=== PATIENT | male | born 1945 | race Caucasian/White ===

== ENCOUNTER → 2016-12-24 | Outpatient (CLI) | payer MEDICARE ==
[~2016-12-24] MED LIST: AMIO200T2 PO; AMLO10TA2 PO; ASPI81TA50 PO; ATOR10TA60 PO; FURO20TA3 PO; METF500T4 PO; METO25TA9 PO; RIVA10TA PO; VALS320T2 PO
--- NOTE | 2016-12-24 16:59 | CARD ---
APPROVED REPORT EXAM: Two-dimensional and M-mode echocardiogram with Doppler and color Doppler. Other Information Quality : GoodHR: 75bpm Rhythm : Atrial Fibrillation INDICATION New onset Atrial fibrillation RISK FACTORS Obesity 2D DIMENSIONS RVDd3.4 (2.9-3.5cm)Left Atrium(2D)4.4 (1.6-4.0cm) IVSd1.1 (0.7-1.1cm)Aortic Root(2D)3.4 (2.0-3.7cm) LVDd5.6 (3.9-5.9cm)LVOT Diameter2.3 (1.8-2.4cm) PWd1.2 (0.7-1.1cm)LVDs3.9 (2.5-4.0cm) FS (%) 30.5 %SV88.9 ml LVEF(%)57.3 (>50%) Aortic Valve AoV Peak Unruly.226.0cm/sAoV VTI48.1cm AO Peak GR.20.4mmHgLVOT Peak Unruly.105.6cm/s LVOT VTI 24.45cmAO Mean GR.12mmHg TOSHIA (VMAX)1.45tv1FFX (VTI)2.14cm2 AI P 1/2 Ipyq421gw Mitral Valve MV E Peak Gr.6mmHgMV E Mean Gr.2mmHg Pulmonary Valve PV Peak Mhsaegwy690.4cm/sPV Peak Grad.4mmHg Tricuspid Valve TR P. Zgwxqphp875dw/sTR Peak Gr.24mmHg Pulmonary Vein S1 Wsdipsfs94.3cm/s LEFT VENTRICLE The left ventricle is normal size. There is mild concentric left ventricular hypertrophy. The left ve ntricular systolic function is grossly normal. Visually the EF is 50-55%. Difficult to accurately est imate due to afib. Septal motion consistent with conduction abnormality. Tissue Doppler imaging revea ls moderate left ventricular diastolic dysfunction. RIGHT VENTRICLE The right ventricle is normal size. There is normal right ventricular wall thickness. The right ventr icular systolic function is normal. ATRIA The left atrium is mildly dilated. The right atrium size is normal. The interatrial septum is intact with no evidence for an atrial septal defect or patent foramen ovale as noted on 2-D or Doppler imagi ng. AORTIC VALVE The aortic valve is mildly sclerotic. The aortic valve is trileaflet. Doppler and Color Flow revealed mild aortic regurgitation. There is no significant aortic valvular stenosis. MITRAL VALVE The mitral valve leaflets are mildly thickened. There is no evidence of mitral valve prolapse. There is no mitral valve stenosis. Doppler and Color Flow revealed mild mitral regurgitation. TRICUSPID VALVE Doppler and Color Flow revealed mild tricuspid regurgitation. The pulmonary artery systolic pressure is estimated at 27 mmHg. There is no pulmonary hypertension. PULMONIC VALVE Doppler and Color Flow revealed trace pulmonic valvular regurgitation. There is no pulmonic valvular stenosis. GREAT VESSELS The aortic root is normal in size. The ascending aorta is mildly dilated. The IVC is normal in size a nd collapses >50% with inspiration. PERICARDIAL EFFUSION There is no evidence of significant pericardial effusion. Critical Notification Critical Value: No <Conclusion> The left ventricular systolic function is grossly normal. Visually the EF is 50-55%. Difficult to acc urately estimate due to afib. Tissue Doppler imaging reveals moderate left ventricular diastolic dysfunction. Doppler and Color Flow revealed mild aortic regurgitation. Doppler and Color Flow revealed mild mitral regurgitation.
== END | disposition home or self-care (01) ==
LOC: ECHO 07:50
PROVIDERS: ATTEND Internal Medicine Cardiovascular Disease
DX: I08.3 Combined rheumatic disorders of mitral, aortic and tricuspid valves (principal); I48.91 Unspecified atrial fibrillation
CPT/HCPCS: 93306

== ENCOUNTER → 2017-02-07 | Outpatient (CLI) | payer MEDICARE ==
[2017-02-07 08:30] LABS: ALBUMIN 3.2 g/dL (3.4-5.0); ALBUMIN/GLOBULIN RATIO 0.8 (1.0-1.7); CALCIUM 8.4 mg/dL (8.5-10.1); CREATININE 1.1 mg/dL (0.7-1.3); GFR 66.4; POTASSIUM 3.5 mmol/L (3.5-5.1); TOTAL BILIRUBIN 0.5 mg/dL (0.2-1.0); TOTAL PROTEIN 7.3 g/dL (6.4-8.2)
== END | disposition home or self-care (01) ==
LOC: LAB 07:58
PROVIDERS: ATTEND Nurse Practitioner
DX: I87.2 Venous insufficiency (chronic) (peripheral) (principal)
CPT/HCPCS: 36415; 80053; 83735

== ENCOUNTER → 2017-03-04 | Outpatient (CLI) | payer MEDICARE ==
--- NOTE | 2017-03-05 10:58 | RAD ---
APPROVED REPORT Bilateral Lower Extremity Venous Study for DVT Patient Location: OUT-PATIENT Indications Lower Extremity Edema: Varicose Veins Copeland scale images of the right and left common femoral, superficial femoral, profunda femoral, popli teal veins do not reveal any evidence of thrombus and these veins appear to be compressible. The belo w-knee veins are not well visualized on copeland scale images. The color Doppler and spectral waveforms of the common femoral to the popliteal segments reveal treasure l flow and spectral pattern. The below-knee veins revealed spontaneous flow. Critical Notification Critical Value: No <Conclusion> 1. Negative for DVT in the bilateral lower extremities.
--- NOTE | 2017-03-05 11:02 | RAD ---
APPROVED REPORT Patient Location : OUT-PATIENT Indications Lower Extremity Edema : Varicose Veins Copeland scale images of the right great saphenous vein on limited images do not reveal any evidence of t hrombus. The vein measures approximately 8 mm at the saphenofemoral junction. The vein has a reflux t eliot of approximately 4 seconds throughout its course. The right lesser saphenous vein measures 5.5 mm and has a reflux time of 4.9 seconds. The left great saphenous vein measures approximately 8 mm at the saphenofemoral junction. The vein galan s reflux time of approximately 4 seconds. The left great saphenous vein measures 4 mm and has a reflu x time of 3.9 seconds. Please note that the above reflux times were obtained with distal compression and augmentation as the patient was unable to perform a Valsalva maneuver. 1 calf perforators noted on the right side at approximately 18 cm up and 11 cm back measuring 3.9 mm. Critical Notification Critical Value: No <Conclusion> 1. Positive for reflux in the bilateral greater and lesser saphenous veins.
== END | disposition home or self-care (01) ==
LOC: US 07:32
PROVIDERS: ATTEND Internal Medicine Cardiovascular Disease
DX: I87.2 Venous insufficiency (chronic) (peripheral) (principal); M79.89 Other specified soft tissue disorders; K21.9 Gastro-esophageal reflux disease without esophagitis; R60.0 Localized edema
CPT/HCPCS: 93970

== ENCOUNTER → 2017-07-29 | Outpatient (CLI) | payer MEDICARE ==
[~2017-07-29] MED LIST changes: +METO-239 PO; -METO25TA9 PO
[2017-07-29 11:48] LABS: ALBUMIN 3.3 g/dL (3.4-5.0); ALBUMIN/GLOBULIN RATIO 0.8 (1.0-1.7); CALCIUM 9.1 mg/dL (8.5-10.1); CREATININE 1.2 mg/dL (0.7-1.3); GFR 59.9; POTASSIUM 3.7 mmol/L (3.5-5.1); TOTAL BILIRUBIN 0.6 mg/dL (0.2-1.0); TOTAL PROTEIN 7.3 g/dL (6.4-8.2)
== END | disposition home or self-care (01) ==
LOC: LAB 10:40
PROVIDERS: ATTEND Internal Medicine Cardiovascular Disease
DX: I48.1 Persistent atrial fibrillation (principal); K21.9 Gastro-esophageal reflux disease without esophagitis; R79.89 Other specified abnormal findings of blood chemistry
CPT/HCPCS: 36415; 80053; 80061

== ENCOUNTER 2018-07-06 17:59 | Emergency (ER) | payer MEDICARE ==
[~2018-07-06 17:59] MED LIST changes: -AMIO200T2 PO; +AMIO200T4 PO; -AMLO10TA2 PO; +AMLO10TA6 PO; +METF500T16 PO; -METF500T4 PO
--- NOTE | 2018-07-06 18:46 | PHYS DOC ---
Adult General Chief Complaint Chief Complaint edema HPI HPI Deisy springer 73 years old gentleman with multiple medical problems including hypertension, A. fib, morbid obesity presented emergency department with the edema and lower extremities bilaterally denies any pain, no redness no recent travel he is taking is all on daily basis Review of Systems Review of Systems Constitutional: Denies fever or chills [] Eyes: Denies change in visual acuity, redness, or eye pain [] HENT: Denies nasal congestion or sore throat [] Respiratory: Denies cough or shortness of breath [] Cardiovascular: No additional information not addressed in HPI [] GI: Denies abdominal pain, nausea, vomiting, bloody stools or diarrhea [] : Denies dysuria or hematuria [] Musculoskeletal: Denies back pain or joint pain [] Integument: Denies rash or skin lesions [] Neurologic: Denies headache, focal weakness or sensory changes [] Endocrine: Denies polyuria or polydipsia [] All other systems were reviewed and found to be within normal limits, except as documented in this note. Allergies Allergies Allergies Coded Allergies Type Severity Reaction Last Updated Verified No Known Drug Allergies 12/24/16 No Physical Exam Physical Exam Constitutional: Well developed, well nourished, no acute distress, non-toxic appearance. [] HENT: Normocephalic, atraumatic, bilateral external ears normal, oropharynx moist, no oral exudates, nose normal. [] Eyes: PERRLA, EOMI, conjunctiva normal, no discharge. [] Neck: Normal range of motion, no tenderness, supple, no stridor. [] Cardiovascular:Heart rate regular rhythm, no murmur [] Lungs & Thorax: Bilateral breath sounds clear to auscultation [] Abdomen: Bowel sounds normal, soft, no tenderness, no masses, no pulsatile masses. [] Skin: Warm, dry, no erythema, no rash. [] Back: No tenderness, no CVA tenderness. [] Extremities: No tenderness, no cyanosis, no clubbing, ROM intact, + 2 edema bilaterally. [] Neurologic: Alert and oriented X 3, normal motor function, normal sensory function, no focal deficits noted. [] Psychologic: Affect normal, judgement normal, mood normal. [] Current Patient Data Vital Signs Vital Signs Date Time Temp Pulse Resp B/P (MAP) Pulse Ox O2 Delivery O2 Flow Rate FiO2 07/06/18 18:10 97.5 83 20 96 Room Air EKG EKG [] Radiology/Procedures Radiology/Procedures [] Course & Med Decision Making Course & Med Decision Making Pertinent Labs and Imaging studies reviewed. (See chart for details) [] Final Impression Final Impression I did very lengthy discussion with the patient in the presence of his he stated he does not want ultrasound because he wants to go home and he does not want to wait for the results of his been waiting for long time already. We talked about the side effect of amlodipine as a possibility of edema Patient agreed to draw some blood but did not want to wait for the result stated he'll follow-up with his primary care provider or veterinary epidemiologist I advised the patient to continue xarelto, also continue Lasix follow-up with cardiology[] Problems: (1) Peripheral edema Dragon Disclaimer Dragon Disclaimer This electronic medical record was generated, in whole or in part, using a voice recognition dictation system. UMM IBARRA MD Jul 06, 2018 18:46
[2018-07-06 19:00] VITALS: BP 132/62
[2018-07-06 19:17] LABS: BASO % 0 % (0-3); EOS # 0.1 x10^3/uL (0.0-0.7); EOS % 1 % (0-3); HEMATOCRIT 38.1 % (39.0-53.0); HEMOGLOBIN 12.2 g/dL (13.0-17.5); LYMPH # 2.1 x10^3/uL (1.0-4.8); LYMPH % 26 % (24-48); MEAN CORPUSCULAR HEMOGLOBIN 26 pg (25-35); MEAN CORPUSCULAR HGB CONC 32 g/dL (31-37); MEAN CORPUSCULAR VOLUME 82 fL (79-100); MONO # 0.6 x10^3/uL (0.0-1.1); MONO % 7 % (0-9); NEUT # 5.4 x10^3uL (1.8-7.7); NEUT % 66 % (31-73); PLATELET COUNT 229 x10^3/uL (140-400); RED BLOOD COUNT 4.67 x10^6/uL (4.30-5.70); RED CELL DISTRIBUTION WIDTH 14.9 % (11.5-14.5); WHITE BLOOD COUNT 8.3 x10^3/uL (4.0-11.0)
[2018-07-06 19:20] LABS: CALCIUM 8.8 mg/dL (8.5-10.1); CREATININE 1.2 mg/dL (0.7-1.3); GFR 59.7; POTASSIUM 3.5 mmol/L (3.5-5.1)
== END 2018-07-06 19:02 | disposition home or self-care (01) ==
LOC: ER 17:59
DX: R60.0 Localized edema (principal); I10 Essential (primary) hypertension; I48.91 Unspecified atrial fibrillation; E66.01 Morbid (severe) obesity due to excess calories
CPT/HCPCS: 36415; 80048; 85025; 85610; 99284

== ENCOUNTER → 2018-08-11 | Outpatient (CLI) | payer MEDICARE ==
--- NOTE | 2018-08-11 15:40 | CARD ---
MR#: [id number] Date of Study: 08/11/2018 Ordering Physician: ESTELA GIBBS, Referring Physician: ESTELA GIBBS, Tech: Ruth Ann Duran RDCS APPROVED REPORT EXAM: Two-dimensional and M-mode echocardiogram with Doppler and color Doppler. INDICATION Atrial Fibrillation RISK FACTORS Obesity 2D DIMENSIONS RVDd3.3 (2.9-3.5cm)Left Atrium(2D)4.9 (1.6-4.0cm) IVSd1.4 (0.7-1.1cm)Aortic Root(2D)3.3 (2.0-3.7cm) LVDd5.2 (3.9-5.9cm)LVOT Diameter2.2 (1.8-2.4cm) PWd1.1 (0.7-1.1cm)LVDs3.8 (2.5-4.0cm) FS (%) 26.8 %SV66.5 ml LVEF(%)51.9 (>50%) Aortic Valve AoV Peak Unruly.206.3cm/sAoV VTI37.5cm AO Peak GR.17.0mmHgLVOT Peak Unruly.109.4cm/s LVOT VTI 21.98cmAO Mean GR.11mmHg TOSHIA (VMAX)2.32cr5QRG (VTI)2.29cm2 AI P 1/2 Rpke284lj Tricuspid Valve TR P. Gjpmomwo416eh/sRAP ADLMXAWY9hlLb TR Peak Gr.52kdIeLPKQ08rpMx Pulmonary Vein S1 Dxxirhso65.5cm/sD2 Hbvswvkw27.0cm/s LEFT VENTRICLE The left ventricle is normal size. There is normal left ventricular wall thickness. Left ventricle sy stolic function is low normal. The Ejection Fraction is 50-55%. There is normal LV segmental wall mot ion. RIGHT VENTRICLE The right ventricle is normal size. The right ventricular systolic function is normal. ATRIA The left atrium is mildly dilated. The right atrium is mildly dilated. The interatrial septum is inta ct with no evidence for an atrial septal defect or patent foramen ovale as noted on 2-D or Doppler im aging. AORTIC VALVE The aortic valve is moderately thickened but opens well. Doppler and Color Flow revealed mild aortic regurgitation. There is no significant aortic valvular stenosis. MITRAL VALVE The mitral valve is calcified but opens well. There is no evidence of mitral valve prolapse. There is no mitral valve stenosis. Doppler and Color-flow revealed trace mitral regurgitation. TRICUSPID VALVE The tricuspid valve is normal in structure and function. Doppler and Color Flow revealed mild tricusp id regurgitation. There is moderate pulmonary hypertension. The PA pressure was estimated at 47 mmHg. There is no tricuspid valve stenosis. PULMONIC VALVE The pulmonic valve is not well visualized. Doppler and Color Flow revealed trace pulmonic valvular re gurgitation. There is no pulmonic valvular stenosis. GREAT VESSELS The aortic root is normal in size. The ascending aorta is mildly dilated at 3.6 cm. The IVC was not v isualized. PERICARDIAL EFFUSION There is no evidence of significant pericardial effusion. Critical Notification Critical Value: No <Conclusion> The left ventricle is normal size. Left ventricle systolic function is low normal. The Ejection Fraction is 50-55%. There is no significant aortic valvular stenosis. Doppler and Color Flow revealed mild aortic regurgitation. Doppler and Color-flow revealed trace mitral regurgitation. Doppler and Color Flow revealed mild tricuspid regurgitation. There is moderate pulmonary hypertension. The PA pressure was estimated at 47 mmHg. The ascending aorta is mildly dilated at 3.6 cm. Signed by : hSorty Lazaro MD Electronically Approved : 08/11/2018 15:38:56
== END | disposition home or self-care (01) ==
LOC: ECHO 13:26
PROVIDERS: ATTEND Internal Medicine Cardiovascular Disease
DX: I08.2 Rheumatic disorders of both aortic and tricuspid valves (principal); I48.2 Chronic atrial fibrillation; I27.20 Pulmonary hypertension, unspecified; E66.9 Obesity, unspecified
CPT/HCPCS: 93306

== ENCOUNTER → 2018-08-11 | Outpatient (CLI) | payer MEDICARE ==
[2018-08-11 15:05] LABS: ALBUMIN 3.1 g/dL (3.4-5.0); ALBUMIN/GLOBULIN RATIO 0.7 (1.0-1.7); CALCIUM 8.3 mg/dL (8.5-10.1); CREATININE 1.3 mg/dL (0.7-1.3); GFR 54.4; POTASSIUM 3.5 mmol/L (3.5-5.1); TOTAL BILIRUBIN 0.3 mg/dL (0.2-1.0); TOTAL PROTEIN 7.4 g/dL (6.4-8.2)
== END | disposition home or self-care (01) ==
LOC: LAB 13:36
PROVIDERS: ATTEND Internal Medicine Cardiovascular Disease
DX: I48.2 Chronic atrial fibrillation (principal)
CPT/HCPCS: 36415; 80053; 83880

== ENCOUNTER 2020-02-09 16:42 | Inpatient (IN) | payer MEDICARE ==
[~2020-02-09] VITALS: Ht 172.7 cm; Wt 129.8 kg
[~2020-02-09 16:42] MED LIST changes: -AMLO10TA6 PO; +AMLO10TA8 PO
--- NOTE | 2020-02-09 17:03 | PHYS DOC ---
Past History Past Medical History: A-Fib, Diabetes, High Cholesterol, Hypertension, Hypothyroid Past Surgical History: Other Alcohol Use: Sober Drug Use: None General Adult EDM: Chief Complaint: LOWER EXTREMITY EDEMA HPI: HPI: 74-year-old male significant history of hypertension, hyperlipidemia, diabetes mellitus, atrial fibrillation on Xarelto, who presents for the evaluation of a nearly 1 month history of increasing symmetric lower extremity edema. 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 Crowell this prior to arrival, who sent him to the ER for further evaluation. The patient reports chronic dyspnea, unchanged from baseline. No chest pain, fever, chills, or URI symptoms. Reports compliance with medication regimen, with the exception of his diuretic, as it results in urinary frequency. Review of Systems: Review of Systems: Gen: No fever, chills. Eyes: No blurred vision, diplopia. ENT: No nasal congestion, sore throat. CV: No CP, palpitations. Reports lower extremity edema. Resp. No cough. Reports chronic dyspnea. GI: No abd pain, N/V. : No dysuria, hematuria. Neuro: No RODRIGES, dizziness, weakness. MSK: No myalgia, arthralgia Skin: No acute rash or lesion. Heart Score: Risk Factors: Risk Factors: DM, Current or recent (<one month) smoker, HTN, HLP, family histo ry of CAD, obesity. Risk Scores: Score 0 - 3: 2.5% MACE over next 6 weeks - Discharge Home Score 4 - 6: 20.3% MACE over next 6 weeks - Admit for Clinical Observation Score 7 - 10: 72.7% MACE over next 6 weeks - Early Invasive Strategies Allergies: Allergies: Allergies Coded Allergies Type Severity Reaction Last Updated Verified No Known Drug Allergies 12/24/16 No Physical Exam: PE: Gen: NAD. Well nourished. Head: NC/AT. Eyes: No scleral icterus. No conjunctival injection. ENT: MMM. Posterior OP clear. Neck: Supple. NT. CV: Irregularly irregular. Systolic ejection murmur. Peripheral pulses intact. Resp: CTAB. Abd: Soft. NT. ND. MSK: No peripheral cyanosis. Significant bilateral lower extremity edema with mild erythema right greater than left leg without focal fluctuance or induration. Distal digits are warm and perfused. Neuro: Awake and alert. Skin. Warm. Dry. Psych: Appropriate mood & affect. EKG: EKG: EKG at 1722. Irregularly irregular rhythm. Heart rate 82. Left bundle branch block morphology. No STEMI. Interpreted by me. Radiology/Procedures: Radiology/Procedures: CHEST AP ONLY Clinical History: Reason: SOA / Spl. Instructions: / History: Technique: AP view of the chest was obtained at 02/09/2020 4:58 PM. Comparison: None. Findings: The cardiomediastinal silhouette is normal. The pulmonary vasculature is normal. The lungs and pleural margins are clear. Impression: No evidence of an acute cardiopulmonary process. Electronically signed by: Darrell Apodaca III, MD (02/09/2020 5:10 PM) [facility] Course & Med Decision Making: Course & Med Decision Making Pertinent Labs and Imaging studies reviewed. (See chart for details) In summary, 74-year-old male who presents for evaluation of a one-month history of increasing bilateral lower extremity edema, with some cellulitic changes of the left anterior leg. Right anterior leg erythema is likely more inside sales account representative of stasis dermatitis. Chronically anticoagulated with Xarelto, making DVT less likely. Reported noncompliance with diuretic due to urinary frequency and polyuria. Chest x-ray clear. No increased work of breathing. Lab work is otherwise unrevealing including negative troponin. Likely a consequence of peripheral edema from diuretic noncompliance, with concomitant mild cellulitis. Will be given Lasix 40 mg IV, oral Keflex and topical mupirocin. Advised adherence to medication regimen including his diuretic. Outpatient cardiology follow-up with Dr. Richards Return precautions given. Aure Disclaimer: Aure Disclaimer: This electronic medical record was generated, in whole or in part, using a voice recognition dictation system. Departure Departure: Impression: Primary Impression: Peripheral edema Additional Impressions: Stasis dermatitis Cellulitis of left leg Nonadherence to medication Disposition: 01 HOME/RESIDENCE PRIOR TO ADM Condition: STABLE Referrals: ADRIANNA MONDRAGON (PCP) Patient Instructions: Cellulitis, Nqvd-fs-Egnd, Peripheral Edema Additional Instructions: Please take all your medications, including your diuretic ("water pill"). Return to the ED if you develop new or worsening symptoms. Justification of Admission: Justification of Admission: Justification of Admission Dx: N/A MIKE IZAGUIRRE DO Feb 09, 2020 17:03
--- NOTE | 2020-02-09 17:13 | RAD ---
CHEST AP ONLY Clinical History: Reason: SOA / Spl. Instructions: / History: Technique: AP view of the chest was obtained at 02/09/2020 4:58 PM. Comparison: None. Findings: The cardiomediastinal silhouette is normal. The pulmonary vasculature is normal. The lungs and pleural margins are clear. Impression: No evidence of an acute cardiopulmonary process. Electronically signed by: Darrell Apodaca III, MD (02/09/2020 5:10 PM) [facility]
--- NOTE | 2020-02-09 17:31 | EKG ---
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
[2020-02-09 17:37] LABS: BASO % 1 % (0-3); EOS # 0.3 x10^3/uL (0.0-0.7); EOS % 3 % (0-3); HEMATOCRIT 33.5 % (39.0-53.0); HEMOGLOBIN 10.5 g/dL (13.0-17.5); LYMPH % 24 % (24-48); MEAN CORPUSCULAR HEMOGLOBIN 24 pg (25-35); MEAN CORPUSCULAR HGB CONC 31 g/dL (31-37); MEAN CORPUSCULAR VOLUME 77 fL (79-100); MONO # 0.5 x10^3/uL (0.0-1.1); MONO % 6 % (0-9); NEUT # 5.4 x10^3uL (1.8-7.7); NEUT % 66 % (31-73); PLATELET COUNT 241 x10^3/uL (140-400); RED BLOOD COUNT 4.38 x10^6/uL (4.30-5.70); RED CELL DISTRIBUTION WIDTH 19.2 % (11.5-14.5); WHITE BLOOD COUNT 8.2 x10^3/uL (4.0-11.0)
[2020-02-09 17:48] LABS: CALCIUM 8.7 mg/dL (8.5-10.1); CREATININE 1.3 mg/dL (0.7-1.3); GFR 54.3
[2020-02-09] MEDS ORDERED: MUPIROCIN 2% TOPICAL OINTMENT 22GM TUBE. TP SCH (18:00)
[2020-02-09] MEDS ORDERED: FUROSEMIDE 40 MG/4 ML VIAL IVP ONE (18:00)
[2020-02-09] MEDS ORDERED: CEPHALEXIN 250 MG CAPSULE PO ONE (18:00)
[2020-02-09 18:01] LABS: ALBUMIN/GLOBULIN RATIO 0.7 (1.0-1.7); MAGNESIUM 2.3 mg/dL (1.8-2.4); TOTAL BILIRUBIN 0.5 mg/dL (0.2-1.0); TOTAL PROTEIN 7.6 g/dL (6.4-8.2)
[2020-02-09] MEDS ORDERED: MUPI15CR8 TP (18:05)
[2020-02-09] MEDS ORDERED: CEPH-264 PO (18:05)
[2020-02-09] MEDS ORDERED: MUPIROCIN 2% TOPICAL OINTMENT 22GM TUBE. TP ONE (18:14)
[2020-02-09] MEDS ORDERED: ONDANSETRON PF 4 MG/2 ML VIAL. IVP PRN (18:30)
[2020-02-09] MEDS ORDERED: VANCOMYCIN 2 GM in IV NORMAL SALINE 500ML 500 ML IV ONE (19:00)
--- NOTE | 2020-02-09 19:35 | NUR ---
Pt arrived from ED in stable condition via transport stretcher. Pt ambulated to bed without difficulty. Pt placed on telemetry and oriented to room. Will admit pt and carry out MD orders. Pt allowed for questions.
[2020-02-09 19:50] VITALS: BP 123/89
[2020-02-09] MEDS ORDERED: IPRATRPIUM/ALBUTEROL 0.5/2.5MG 3 ML NEBU. NEB SCH (20:00)
[2020-02-09] MEDS: FUROSEMIDE 40 MG/4 ML VIAL IVP SCH (21:00)
[2020-02-09 21:10] VITALS: BP 148/93
[2020-02-09] MEDS ORDERED: IPRATRPIUM/ALBUTEROL 0.5/2.5MG 3 ML NEBU. NEB PRN (21:15)
[2020-02-09 22:10] VITALS: BP 147/78
[2020-02-09] MEDS: VANCOMYCIN PER PHARMACY MC PRN (22:37)
--- NOTE | 2020-02-09 22:37 | NUR ---
Pharmacy Vancomycin Dosing Note S:Consulted to monitor and dose vancomycin started 02/09/20. O:NELL PARDO is a 74 year old M with Cellulitis, . Height: 5 feet, 8 inches Weight: 137.0 kg [place] Body Weight: 68.40 Adjusted Body Weight: 95.84 Dosing Weight: Actual Other Antibiotics: CEFTRIAXONE 1GRAM Q 24HRS LABS: Last BUN: 20 Last Creatinine: 1.3 Creatinine Clearance: Last WBC: 8.2 Last Procalcitonin: Tmax (past 24 hours): Microbiology: I/O: Drug Levels: Last level: on at Last dose given 02/09/20 at 2030 Vancomycin Dosing: Loading Dose: 2000 mg x1 Dosing Weight: Actual Target Trough: 10-20 A: Based on: P: 1. Begin Vancomycin 2000 mg IV q12h 2. Follow up Trough level on 02/11/20 at 0830 3. Pharmacy will continue to monitor, follow and adjust therapy as needed. JR MAYORGA, [facility], 02/09/20 [id number]
[2020-02-09] MEDS ORDERED: PIOG15TA42 PO (22:52)
[2020-02-09] MEDS ORDERED: TORS100T3 PO (22:54)
[2020-02-09] MEDS ORDERED: LEVO50TA5 PO (22:56)
[2020-02-09 23:10] VITALS: BP 132/78
[2020-02-10] VITALS (11 sets, daily range): BP systolic 125–146; BP diastolic 65–88
--- NOTE | 2020-02-10 05:21 | NUR ---
Pt has not slept much at all tonight, he states, "It is hard to sleep in the hospital." He remains on RA. No c/o pain. Pt BLE remain edematous and with cellulitis. Pt tolerated his vancomycin abx. Dipika in place for accurate I&Os
[2020-02-10 06:12] LABS: BASO % 1 % (0-3); EOS # 0.2 x10^3/uL (0.0-0.7); EOS % 3 % (0-3); HEMATOCRIT 31.1 % (39.0-53.0); HEMOGLOBIN 9.7 g/dL (13.0-17.5); LYMPH # 1.4 x10^3/uL (1.0-4.8); LYMPH % 25 % (24-48); MEAN CORPUSCULAR HEMOGLOBIN 24 pg (25-35); MEAN CORPUSCULAR HGB CONC 31 g/dL (31-37); MEAN CORPUSCULAR VOLUME 76 fL (79-100); MONO # 0.5 x10^3/uL (0.0-1.1); MONO % 9 % (0-9); NEUT # 3.5 x10^3uL (1.8-7.7); NEUT % 63 % (31-73); PLATELET COUNT 215 x10^3/uL (140-400); RED BLOOD COUNT 4.09 x10^6/uL (4.30-5.70); RED CELL DISTRIBUTION WIDTH 19.2 % (11.5-14.5); WHITE BLOOD COUNT 5.6 x10^3/uL (4.0-11.0)
[2020-02-10 06:16] LABS: CALCIUM 8.2 mg/dL (8.5-10.1); GFR 73.5; POTASSIUM 3.3 mmol/L (3.5-5.1)
[2020-02-10] MEDS ORDERED: VANCOMYCIN 1 GM in IV NORMAL SALINE 250ML 250 ML IV ONE (09:00)
[2020-02-10] MEDS: FUROSEMIDE 40 MG/4 ML VIAL IVP SCH (09:04)
[2020-02-10] MEDS: LACTOBACILLUS RHAMNOSUS GG 1 CAPSULE. PO SCH ×2 (09:04→20:55)
--- NOTE | 2020-02-10 09:46 | PDOC ---
PROVIDER NOTE PROVIDER NOTE PROVIDER NOTE patient well known to our service. Sent to ER from my office. Will continue lasix, replete K. Good UOP and negative fluid balance last night Consult wound care for local wound mgmt. Needs home health care. Will set up everything and anticipate DC on friday or late tomorrow Needs to be admitted for severe acute on chronic systolic and diastolic heart failure with poor response to outpt diuretics. Thanks Justification of Admission: Justification of Admission: Justification of Admission Dx: N/A ESTELA GIBBS MD Feb 10, 2020 09:46
[2020-02-10] MEDS ORDERED: MAGNESIUM SULFATE 1GM 100 ML IV ONE (10:20)
--- NOTE | 2020-02-10 10:35 | HP ---
ADMIT DATE: 02/10/2020 ATTENDING PHYSICIAN: Dr. Doss. CHIEF COMPLAINT: Shortness of breath and swelling. HISTORY OF PRESENT ILLNESS: The patient is a 74-year-old retired gentleman with a longstanding history of morbid obesity, hypertension, diabetes mellitus, atrial fibrillation and chronic anticoagulation. He has had a nearly one-month history of increasing lower extremity edema. He has 4+ edema extending all the way up to his thighs. He has stasis dermatitis and cellulitis. He has very little insight into his fluid balance. He drinks a lot of fluids and ice tea. He had been on diuretics. He stopped taking it because it was causing him to urinate too much. Therefore, weight has gone up. Weight on admission was 305 pounds. He was seen by Dr. Crowell who referred him for admission. We are grateful for the kind referral. He will be here for diuresis, fluid restriction, daily weights and serial chemistries. Because of his cellulitis, empiric vancomycin has been started. PAST MEDICAL HISTORY: Significant for essential hypertension; noncompliance of meds; hyperlipidemia; type 2 diabetes; atrial fibrillation; chronic anticoagulation, on Xarelto and morbid obesity. MEDICATIONS: Medicines were reviewed. Whether he was compliant or not remains to be seen. He has no recorded drug allergies. He was taking atorvastatin daily, cephalexin orally, Synthroid, metformin, metoprolol, Actos, rivaroxaban, torsemide 50 mg b.i.d. and valsartan 320 mg daily. SOCIAL HISTORY: He is a nonsmoker, nondrinker. 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 He has no family, lives with the brother. He does eat quite a bit of sodium in his diet. FAMILY HISTORY: Mom at age 84 of heart disease. Father of alcoholic related issues at age 68. REVIEW OF SYSTEMS: Significant for the increased fluid intake. No fevers, chills, COVID exposure. He denied any palpitations. He is on chronic anticoagulation. He denies any bleeding, nausea, hematemesis or bloody stool. All other systems reviewed and turned to be negative. PHYSICAL EXAMINATION: GENERAL: When I saw him, this is a pleasant gentleman who was breathing better. INITIAL VITAL SIGNS: In the ED showed a blood pressure of 146/72, pulse is 60 and regular, temperature 97.7 degrees Fahrenheit, and his oxygen saturation were 97% on room air. HEENT: Head is without trauma. Pupils are reactive. Sclerae nonicteric. Oropharynx clear. NECK: Supple. Venous pressure is not distended at 45 degrees. LUNGS: Bibasilar crackles. CARDIOVASCULAR: Showed distant heart tones, irregular rhythm. No gallops. Peripheral pulses are palpable and full. ABDOMEN: Obese, protuberant. No organomegaly. Large pannus. There is some erythema below the pannus. EXTREMITIES: Show 4+ edema extending up to his thighs. There are numerous excoriations. No abscess, but open skin wounds from the swelling. NEUROLOGIC: Focally intact. He gets along slowly. His gait is hampered by his swelling. SKIN: As noted. PERTINENT LABORATORY AND X-RAY STUDIES: Chest x-ray showed cardiomegaly, vascular congestion and bilateral pleural effusions. Admission hemoglobin was 10.5 g/dL with white count of 8200. Chemistry panel showed sodium 137, potassium 4.0 mEq, creatinine is 1.3 mg/dL. Cardiac troponin was 0.02. ASSESSMENT: 1. A 74-year-old gentleman with significant anasarca. 2. Stasis dermatitis. 3. Noncompliance of fluids with volume overload. I anticipate he has 40 pounds of third-space fluid. 4. Noncompliance of meds. 5. Type 2 diabetes mellitus. 6. Chronic atrial fibrillation, on Xarelto therapy. 7. Essential hypertension. 8. Morbid obesity. PLAN: 1. Admit to the unit. 2. Empiric vancomycin has been started. 3. Diuresis with Lasix intravenously. 4. Potassium and magnesium replacement. 5. Serial chemistry. 6. A 1200 mL daily fluid restriction. 7. Continue other home meds. 8. Cardiology consultation. 9. I should try to access his last echocardiogram if one has been done recently. VIANEY DOSS MD DR: DORIS/mallika JOB#: [id number] / [id number] ESTELA Horne MD, JAROD PA
[2020-02-10] MEDS: VANCOMYCIN 2 GM in IV NORMAL SALINE 500ML 500 ML IV SCH ×2 (12:24→21:31)
[2020-02-10] MEDS: POTASSIUM CHLORIDE 20 MEQ TABLET.ER. PO SCH ×2 (12:25→20:55)
[2020-02-10] MEDS: FUROSEMIDE 100 MG/10 ML VIAL IVP SCH (14:00)
--- NOTE | 2020-02-11 02:16 | NUR ---
Nursing Note The patient was found to be laying in his bed awake and alert and oriented to self, date, location, and situation at shift change. The patient was pleasant and appropriate during interactions with this nurse during his assessment. The patient has wounds located bilaterally on his lower legs. These wounds have been documented previously and appear to have no deterioration since last they were assessed. The wounds have no output at this time. Area around BLE wounds is noted to be red and edematous. The patient stated no difficulty breathing, active bowel sounds w/lbm 02/10/20 per patient. The patient took his medications whole. The patient has a 20guage IV located in his Right AC. The IV appears to have some old blood located under the transparent dressing but the line flushes easily. The IV is sensitive to any movement of the patient. The patient is currently sleeping in his room.
[2020-02-11 03:17] VITALS: BP 145/88
[2020-02-11 06:21] LABS: CREATININE 1.2 mg/dL (0.7-1.3); GFR 59.5; MAGNESIUM 2.2 mg/dL (1.8-2.4); POTASSIUM 3.5 mmol/L (3.5-5.1)
[2020-02-11 07:14] VITALS: BP 145/88
--- NOTE | 2020-02-11 08:15 | NUR ---
Pt's heart rate increases to approximately 160 with minimal movement, pt's home medications had not been restarted. This RN called and spoke to Dr. Crowell (pt's bus operator), received orders to restart Xarelto and metoprolol succinate. Dr. Crowell said to hold off on valsartan at this time, due to increased Lasix dose and prevent decreased kidney function.
[2020-02-11] MEDS: FUROSEMIDE 100 MG/10 ML VIAL IVP SCH ×2 (08:50→14:12)
[2020-02-11] MEDS: LACTOBACILLUS RHAMNOSUS GG 1 CAPSULE. PO SCH ×2 (08:50→21:35)
[2020-02-11] MEDS: POTASSIUM CHLORIDE 20 MEQ TABLET.ER. PO SCH ×2 (08:51→21:35)
[2020-02-11 08:53] LABS: VANC TR 22.9 mcg/mL (10.0-20.0)
[2020-02-11] MEDS ORDERED: MAGNESIUM SULFATE 1GM 100 ML IV ONE (09:00)
[2020-02-11] MEDS ORDERED: METOPROLOL SUCC 24HR ER 25 MG TAB.ER.24H. PO SCH (09:00)
[2020-02-11] MEDS ORDERED: VANCOMYCIN 1.75 GM in IV NORMAL SALINE 500ML 500 ML IV SCH (09:30)
[2020-02-11] MEDS: VANCOMYCIN 1.5 GM in IV NORMAL SALINE 500ML 500 ML IV SCH ×2 (10:36→21:36)
[2020-02-11] MEDS ORDERED: METOPROLOL TART IMMED RELEASE 25 MG TABLET PO ONE (11:00)
[2020-02-11 11:22] VITALS: BP 145/88
--- NOTE | 2020-02-11 11:55 | PN ---
DATE: 02/11/2020 ATTENDING PHYSICIAN: Dr. Doss. SUBJECTIVE: He is doing better. He wants to go home. He was pretty adamant about it. I explained to him that since his condition did not occur overnight, I cannot get him treated overnight. His weight is down 10 pounds since yesterday, 21 pounds since admission. His swelling is better. He is feeling well. Once again, he has very little insight into his condition and what got him here in the first place. OBJECTIVE FINDINGS: VITAL SIGNS: Blood pressure today is 145/88, his heart rate is irregularly irregular. He has permanent atrial fibrillation. Heart rate ranges between 120 and 150. He is not symptomatic. His temperature is 98.6 degrees Fahrenheit. Room air saturations are 92%. HEENT: Head is without trauma. Pupils are reactive. I noticed now he has a noticeable telangiectasia around his nose. NECK: Supple. Venous pressure is not distended. LUNGS: Minimal crackles at the bases. CARDIOVASCULAR: Showed distant heart tones, tachycardic rhythm, irregularly irregular. No obvious gallops. Peripheral pulses are palpable and full. ABDOMEN: Markedly obese, protuberant. No organomegaly. Bowel sounds were hypoactive. EXTREMITIES: Showed some improvement of the 4+ pitting edema. He has excoriations on both legs from scratching. There are no open sores. The swelling is down and the redness and erythema has improved with inpatient care and IV antibiotics. PERTINENT LABORATORY STUDIES: His creatinine today is slightly up to 1.2 mg/dL, potassium is 3.5 mEq. This has been replaced. His nonfasting blood sugar is 132. His weight again is 284, down to 10 pounds from yesterday. ASSESSMENT: 1. A 74-year-old gentleman with acute on chronic congestive heart failure. 2. Anasarca. 3. Stasis dermatitis. 4. Noncompliance of meds. 5. Type 2 diabetes. 6. Permanent atrial fibrillation, currently on Xarelto. 7. Essential hypertension. 8. Morbid obesity. 9. History of alcoholism in the past. He states he quit 3 years ago. PLAN: 1. Increase metoprolol dose to control ventricular rate. He is still tachycardic. 2. Continue diuresis with b.i.d. Lasix therapy. 3. Potassium and magnesium replacement. 4. Serial chemistries. 5. Continue 1200 mL daily fluid restriction. Whether or not he will maintain this upon discharge remains to be seen. I seriously doubt that he understands the concept of fluid restriction. 6. Beta eduardo has been increased. 7. Recommendations per Cardiology. 8. I am still trying to track down his last echocardiogram. VIANEY DOSS MD DR: DORIS/mallika JOB#: [id number] / [id number] ESTELA Horne MD
--- NOTE | 2020-02-11 12:30 | NUR ---
pt sitting up eating lunch, Dr. Steiner had increased Metoprol to 100mg po daily. Pt's current heartrate is 86. Pt is less SOB when moving around. Pt had 2000 cc output after IV Lasix this morning.
[2020-02-11 14:00] VITALS: BP 112/60
[2020-02-11 15:51] VITALS: BP 112/60
[2020-02-11] MEDS: VANCOMYCIN PER PHARMACY MC PRN (16:02)
--- NOTE | 2020-02-11 16:03 | NUR ---
Pharmacy Vancomycin Dosing Note S:Consulted to monitor and dose vancomycin started 02/09/20. O:NELL PARDO is a 74 year old M with cellulitis. Height: 5 feet, 8 inches Weight: 130.1 kg [place] Body Weight: 68.40 Adjusted Body Weight: 93.08 Dosing Weight: Actual Other Antibiotics: CEFTRIAXONE 1GRAM Q 24HRS LABS: Last BUN: 13 Last Creatinine: 1.2 Creatinine Clearance: 73.3 Last WBC: 5.6 Drug Levels: Last Trough level: 22.9 on 02/11/20 at 0830 Last dose given 02/10/20 at 2030 Vancomycin Dosing: Loading Dose: 2000 mg x1 Dosing Weight: Actual Target Trough: 10-20 A: Based on: Pt's trough elevated, will decrease dose based on kinetics. P: 1. Decrease Vancomycin 1500 mg IV q12h 2. Follow up Trough level on 02/12/20 at 2100 3. Pharmacy will continue to monitor, follow and adjust therapy as needed. DEA RUDD, 02/11/20 [id number]
--- NOTE | 2020-02-11 16:57 | NUR ---
Wound Care Wound care consult for bilateral leg cellulitis with wounds. Lotion applied to BLE. Pt has multiple scabs on BLE with resolving swelling and redness. Educated pt on PU prevention. No other wounds noted, WC will sign off at this time. Please reconsult if new wounds develop.
[2020-02-11] MEDS ORDERED: RIVAROXABAN 10 MG TABLET. PO SCH (17:00)
[2020-02-11 20:32] VITALS: BP 118/58
[2020-02-12 06:34] VITALS: BP 150/92
[2020-02-12] MEDS: FUROSEMIDE 100 MG/10 ML VIAL IVP SCH (08:29)
[2020-02-12] MEDS: LACTOBACILLUS RHAMNOSUS GG 1 CAPSULE. PO SCH (08:29)
[2020-02-12] MEDS: POTASSIUM CHLORIDE 20 MEQ TABLET.ER. PO SCH (08:29)
[2020-02-12] MEDS ORDERED: METOPROLOL SUCC 24HR ER 50 MG TAB.ER.24H. PO SCH (09:00)
[2020-02-12] MEDS: VANCOMYCIN 1.5 GM in IV NORMAL SALINE 500ML 500 ML IV SCH (09:30)
--- NOTE | 2020-02-12 09:37 | NUR ---
Pt is calm, cooperative, and compliant but states he does not like his medication as he had hallucinations last night. He stated the clock had a face, the fan had the face of an elderly man and the TV was an empty box. Dr. Steiner informed. Pt is compliant with his medication and assessment. Pt is able to make wants and needs known.
--- NOTE | 2020-02-12 09:55 | NUR ---
Pt refused vancomycin stating "I'll just take the pills when I get home." "I don't want anything with a needle." Nurse educated pt on importance of antibiotic and how medication would be administered however pt was adamant and continued to refuse.
[2020-02-12 11:00] VITALS: BP 140/69
--- NOTE | 2020-02-12 11:15 | NUR ---
Discontinued pts sahni per daughters request. Pt tolerated well. Addendum: 02/12/20 at 1146 by CORNEL GREEN RN wrong pt
--- NOTE | 2020-02-12 12:57 | NUR ---
Pt left via accompanied by [facility] staff. Reviewed fluid restrictions, post sahni care, medications, and discharge instructions. Qi Brumfield acknowledged understanding. Pt entered vehicle unassisted.
--- NOTE | 2020-02-13 10:05 | DS ---
DATE OF DISCHARGE: 02/12/2020 ATTENDING PHYSICIAN: Dr. Doss FINAL DISCHARGE DIAGNOSES: 1. Anasarca. 2. Significant pedal edema due to noncompliance of meds and excess fluid intake. 3. Permanent atrial fibrillation. 4. Morbid obesity. 5. Probable congestive heart failure. Last echocardiogram 07/2018. 6. Stasis dermatitis. 7. Type 2 diabetes. 8. Essential hypertension. 9. History of chronic alcoholism in the past. HISTORY AND PHYSICAL: The patient is a 74-year-old gentleman who unfortunately has a poor social situation. He has no other family. He has a younger brother that he actually takes care of. There is a niece involved in his care. He has very little insight. He has multiple medical issues. He presented with significant swelling, some shortness of breath and excoriations on his lower extremities due to stasis dermatitis. He was admitted for further treatment and evaluation. Unfortunately, he has little insight into taking his meds. He has been noncompliant and even stated he stopped taking his diuretics. He had been on Demadex 50 mg b.i.d. PHYSICAL EXAMINATION: Please see the dictated note. PERTINENT LABORATORY AND X-RAY STUDIES: On admission, his weight was 305, on the day of discharge with aggressive diuresis, he was down to 273 by my estimate. Initial hemoglobin was 10.5 g/dL with a white count of 8200. Subsequent chemistry panel showed a creatinine that was 1.3, 1.0, and 1.2 mg/dL respectively. His potassium was 4.0, replaced and was 3.5 mEq per liter. This will be followed up as an outpatient. His troponin levels were nonischemic. Nonfasting blood sugar 132 mg/dL. BNP was 2797. COURSE IN THE HOSPITAL: The patient was admitted. He was started on b.i.d. Lasix intravenously along with daily weights, fluid restriction and serial chemistries. He did well. He lost about 10 pounds a day from third space fluid. We treated him with 3 full days of intravenous vancomycin to cover Staphylococcus species from his excoriations of the open wounds that are from him scratching at his leg. The swelling did come down. Erythema has improved and responded well to the antibiotics. By the third hospital day, his blood pressure and vital signs were stable. His heart rate had gone up, and we had increased his metoprolol to 100 mg daily. I reviewed the last echocardiogram dated 07/2018. At that time, he had a low ejection fraction estimated at 50%, enlargement of both left and right atrium, no significant valvular heart disease, but he had increased pulmonary hypertension. On the third hospital day, his weight was down 32 pounds since admission. Blood pressure was between 120 and 140 mmHg systolic. Heart rate had been controlled. It had gone as high as 148 per minute, but now it is in the 70s and 80s range with irregularly irregular rhythm. His oxygen saturations were 96% on room air and he was afebrile. Therefore, he insisted on going home. I recommended that he follow fluid restriction and get daily weights. I really doubt that he is going to do it. Nevertheless, I went over the details and whether or not he will follow the advice remains to be seen. In any event, I recommended an increased dose of metoprolol 100 mg ER daily, continuation of his Demadex 50 mg b.i.d. - I wrote him a new script, K-Dur 20 mEq b.i.d. and Vantin 200 mg p.o. b.i.d. for 7 more days and stop. I recommended he continue his Lipitor 10 mg daily, Synthroid 50 mcg daily, metformin 500 mg b.i.d., Actos 15 mg daily, Xarelto 20 mg daily, Demadex 50 mg b.i.d., and valsartan 80 mg p.o. daily. I strongly suggested that he follow up with his PCP and Dr. Crowell, his home demonstration agent for followup visit with recheck chemistries in about 2 weeks. The patient was then discharged from our hospital in stable condition with explicit instructions and followup care. VIANEY DOSS MD DR: DORIS/mallika JOB#: [id number] / [id number] ESTELA Horne MD
== END 2020-02-12 12:45 | disposition home or self-care (01) | DRG 292 ==
LOC: ER 16:42 → ICU 18:30
PROVIDERS: ADMIT Hospitalist; ATTEND Hospitalist
DX: I11.0 Hypertensive heart disease with heart failure (principal); L03.116 Cellulitis of left lower limb; I48.21 Permanent atrial fibrillation; Z68.41 Body mass index [BMI] 40.0-44.9, adult; I50.43 Acute on chronic combined systolic (congestive) and diastolic (congestive) heart failure; I87.2 Venous insufficiency (chronic) (peripheral); E03.9 Hypothyroidism, unspecified; E11.9 Type 2 diabetes mellitus without complications; E66.01 Morbid (severe) obesity due to excess calories; E78.00 Pure hypercholesterolemia, unspecified; E78.5 Hyperlipidemia, unspecified; I27.20 Pulmonary hypertension, unspecified; Z79.01 Long term (current) use of anticoagulants; Z79.84 Long term (current) use of oral hypoglycemic drugs; Z79.890 Hormone replacement therapy; Z79.899 Other long term (current) drug therapy; Z91.14 Patient's other noncompliance with medication regimen; Z91.19 Patient's noncompliance with other medical treatment and regimen; R60.1 Generalized edema
CPT/HCPCS: 36415; 71045; 80048; 80053; 80202; 83735; 83880; 84484; 85025; 93005; 96374; 99285; G0238; J0696; J1940; J3370; J3475; J7040

== ENCOUNTER → 2020-03-07 | Outpatient (CLI) | payer MEDICARE ==
[2020-02-12 11:00] VITALS: BP 140/69
[~2020-03-07] MED LIST changes: +CEPH-264 PO; +LEVO50TA5 PO; +MUPI15CR8 TP; +PIOG15TA42 PO; +TORS100T3 PO
[2020-03-07 10:08] LABS: CALCIUM 8.7 mg/dL (8.5-10.1); CREATININE 1.5 mg/dL (0.7-1.3); POTASSIUM 4.7 mmol/L (3.5-5.1)
== END | disposition home or self-care (01) ==
LOC: LAB 08:09
PROVIDERS: ATTEND Internal Medicine Cardiovascular Disease
DX: I48.91 Unspecified atrial fibrillation (principal)
CPT/HCPCS: 36415; 80048; 83880

== ENCOUNTER → 2020-03-07 | Outpatient (CLI) | payer MEDICARE ==
[2020-02-12 11:00] VITALS: BP 140/69
--- NOTE | 2020-03-14 10:18 | RAD ---
Ankle-brachial indices, bilateral lower extremity arterial duplex ultrasound INDICATION: Nonhealing wounds, bilateral lower extremities Comparison exam: None Discussion: Blood pressure measurements were obtained in the brachial arteries and lower extremities bilaterally. Right brachial pressure: 1 38 mmHg Left brachial pressure: 1 54 mmHg Right posterior tibial pressure: 1 54 mmHg Left posterior tibial pressure 1 52 mmHg Right dorsalis pedis pressure: 1 50 mmHg Left dorsalis pedis pressure: 1 46 mmHg Right JUD 1.0 Left JUD 0.9 Ultrasound evaluation of the major arteries of the bilateral lower extremities was performed including color Doppler imaging spectral analysis. Essentially normal waveform morphology and velocities are seen throughout the major arteries of the bilateral lower extremities including the common femoral, superficial femoral, popliteal, posterior tibial, anterior tibial, and dorsalis pedis arteries. Profunda arteries appear to be grossly patent. No focal elevation in velocity suggestive of hemodynamically significant stenosis is identified. No major arterial occlusion is seen. No evidence of aneurysm is seen. IMPRESSION: 1. Ankle brachial indices within normal limits 2. Grossly normal sonographic appearance of the major arteries of the bilateral lower extremities Electronically signed by: Junior Carrillo MD (03/14/2020 10:15 AM) [id number]
== END | disposition home or self-care (01) ==
LOC: US 08:03
PROVIDERS: ATTEND Preventive Medicine Undersea and Hyperbaric Medicine
DX: S81.802A Unspecified open wound, left lower leg, initial encounter (principal); S81.801A Unspecified open wound, right lower leg, initial encounter; I70.238 Atherosclerosis of native arteries of right leg with ulceration of other part of lower leg; R60.0 Localized edema; I87.2 Venous insufficiency (chronic) (peripheral); M79.89 Other specified soft tissue disorders; X58.XXXA Exposure to other specified factors, initial encounter; Y93.89 Activity, other specified; Y92.89 Other specified places as the place of occurrence of the external cause; Y99.8 Other external cause status
CPT/HCPCS: 93922; 93925

== ENCOUNTER → 2020-05-23 | Outpatient (CLI) | payer MEDICARE ==
[~2020-05-23] MED LIST changes: -AMIO200T4 PO; +AMIO200T6 PO; +AMLO-187 PO; -AMLO10TA8 PO
--- NOTE | 2020-05-23 15:34 | CARD ---
MR#: [id number] Date of Study: 05/23/2020 Ordering Physician: ESTELA GIBBS, Referring Physician: ESTELA GIBBS, Tech: Chelsea Mansfield APPROVED REPORT EXAM: Two-dimensional and M-mode echocardiogram with Doppler and color Doppler. Other Information HR: 72bpm Technically limited study due to body habitus and obesity INDICATION Atrial Fibrillation RISK FACTORS Hypertension Hyperlipidemia Diabetes Asthma 2D DIMENSIONS Left Atrium(2D)4.1 (1.6-4.0cm)IVSd1.2 (0.7-1.1cm) Aortic Root(2D)3.5 (2.0-3.7cm)LVDd4.9 (3.9-5.9cm) LVOT Diameter2.0 (1.8-2.4cm)PWd1.2 (0.7-1.1cm) LVDs3.1 (2.5-4.0cm)FS (%) 36.3 % SV73.7 ml Aortic Valve AoV Peak Unruly.224.4cm/sAoV VTI55.2cm AO Peak GR.20.1mmHgLVOT Peak Unruly.142.1cm/s LVOT VTI 36.37cmAO Mean GR.12mmHg TOSHIA (VMAX)2.47un9JLV (VTI)2.08cm2 AI P 1/2 Utgi314ji Mitral Valve MV E Uifsyxar928.6cm/sMV DECEL BETC133cv MV A Zkiqwtui08.2cm/sE/A Ratio3.7 Pulmonary Valve PV Peak Bksdsjdw33.8cm/sPV Peak Grad.3mmHg Tricuspid Valve TR P. Ipcxylca219pl/sRAP [id number] TR Peak Gr.12vaQyTIZM23owQl LEFT VENTRICLE The left ventricle is normal size. There is mild concentric left ventricular hypertrophy. The left ve ntricular systolic function is low normal. The Ejection Fraction is estimated at 50%. Septal motion c onsistent with conduction abnormality. RIGHT VENTRICLE The right ventricle is normal size. There is normal right ventricular wall thickness. The right ventr icular systolic function is normal. ATRIA The left atrium size is normal. The right atrium is mildly dilated. The interatrial septum is intact with no evidence for an atrial septal defect or patent foramen ovale as noted on 2-D or Doppler imagi ng. AORTIC VALVE The aortic valve is thickened but opens well. Doppler and Color Flow revealed trace aortic regurgitat ion. There is no significant aortic valvular stenosis. Calculated aortic valve area is 2.1 cm2 with m aximum pressure gradient of 20 mmHg and mean pressure gradient of 11 mmHg. MITRAL VALVE The mitral valve is normal in structure and function. There is no evidence of mitral valve prolapse. There is no mitral valve stenosis. Doppler and Color-flow revealed trace mitral regurgitation. TRICUSPID VALVE The tricuspid valve is normal in structure and function. Doppler and Color Flow revealed trace to mil d tricuspid regurgitation with an estimated PAP of >50 mmHg. There is no tricuspid valve stenosis. PULMONIC VALVE The pulmonic valve is not well visualized. GREAT VESSELS The aortic root is normal in size. The IVC is normal in size and collapses >50% with inspiration. PERICARDIAL EFFUSION There is no evidence of significant pericardial effusion. Critical Notification Critical Value: No <Conclusion> The left ventricle is normal size. The left ventricular systolic function is low normal. The Ejection Fraction is estimated at 50%. There is mild concentric left ventricular hypertrophy. Doppler and Color Flow revealed trace aortic regurgitation. There is no significant aortic valvular stenosis. Calculated aortic valve area is 2.1 cm2 with maximum pressure gradient of 20 mmHg and mean pressure g radient of 11 mmHg. Doppler and Color-flow revealed trace mitral regurgitation. Doppler and Color Flow revealed trace to mild tricuspid regurgitation with an estimated PAP of >50 mm Hg. Signed by : Shorty Lazaro MD Electronically Approved : 05/23/2020 15:34:18
== END ==
LOC: ECHO 12:54
PROVIDERS: ATTEND Internal Medicine Cardiovascular Disease
DX: I07.1 Rheumatic tricuspid insufficiency (principal); I48.91 Unspecified atrial fibrillation
CPT/HCPCS: 93306